=== PATIENT | female | born 1955 | race African-American/Black ===

== ENCOUNTER 2019-02-18 23:15 | Emergency (ER) | payer OTHER ==
[2019-02-18 23:27] VITALS: BP 149/93; PULSE 88; TEMP 97.6; BMI 25.7
--- NOTE | 2019-02-18 23:28 | PDOC ---
Attending Attestation - HPI HPI: 02/19/19 00:26 The patient is a 63 year old female with a past medical history of chronic abdominal pain, pancreatitis, DVT (on xarelto), and alcohol dependence brought in by EMS today from [facility] for evaluation of an unwitnessed fall and epigastric pain. Patient reports that she fell today when getting out of bed and denies head strike or loss of consciousness. Patient also reports epigastric pain that radiates to the right lower quadrant and notes that she has not been able to eat due to nausea and vomiting. She also notes episodes of diarrhea. Patient denies headache, lightheadedness. Denies fever, chills. Denies chest pain, shortness of breath. Denies lower extremity edema. Denies urinary symptoms. Allergies: NKA - Physicial Exam PE: 02/19/19 00:45 Constitutional: Awake, alert, oriented. No acute distress. Head: Normocephalic. Atraumatic Eyes: PERRL. EOMI. Conjunctivae are not pale. ENT: Mucous membranes are moist and intact. Posterior pharynx without exudates or erythema. Uvula midline. Neck: Supple. Full ROM. No lymphadenopathy. Cardiovascular: Regular rate. Regular rhythm. S1, S2 regular. Distal pulses are 2+ and symmetric. Pulmonary/Chest: No evidence of respiratory distress. Clear to auscultation bilaterally No wheezing, rales or rhonchi. Abdominal: +upper abdominal pain most prominent in the right upper quadrant. Soft and non-distended. No rebound, guarding or rigidity. No organomegaly. No palpable masses. Good bowel sounds. Back: No CVA tenderness. Musculoskeletal: No edema. No cyanosis. No clubbing. Full range of motion in all extremities. No calf tenderness. Radial/pedal pulses are intact and 2+ bilaterally Skin: +bruising. Skin is warm and dry. No petechiae. No purpura. Neurological: Alert and oriented to person, place, and time. Cranial nerves II -XII are grossly intact. Normal speech. Strength is grossly symmetric. No sensory deficits. Psychiatric: Good eye contact. Normal interaction, affect and behavior. - Medical Decision Making 02/19/19 00:26 Documentation prepared by ALEKSANDRA Berg, acting as ophthalmic medical assistant for Michelle Sommers DO. <Alex Aleman - Last Filed: 02/19/19 00:46> - Resident Resident Name: Sa Nicholeira - ED Attending Attestation I have performed the following: I have examined & evaluated the patient, The case was reviewed & discussed with the resident, I agree w/resident's findings & plan, Exceptions are as noted - Medical Decision Making 02/18/19 23:28 I, Dr. Michelle Sommers, DO, attest that this document has been prepared under my direction and personally reviewed by me in its entirety. I further attest, that it accurately reflects all work, treatment, procedures and medical decision -making performed by me. 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
[2019-02-18] MEDS ORDERED: FAMOTIDINE 20 MG/50 ML IVPB 20 MG/50 ML MG IVPB ONE ×2 (23:42→23:50)
[2019-02-18] MEDS ORDERED: ONDANSETRON 4 MG/2 ML VIAL IVPB ONE (23:42)
[2019-02-18] MEDS ORDERED: SODIUM CHLORIDE 1,000 ML IV STA (23:42)
[2019-02-18] MEDS ORDERED: ACETAMINOPHEN 1000 MG/100 ML VIAL (NON FORMULARY) IVPB ONE (23:42)
--- NOTE | 2019-02-18 23:42 | PDOC ---
History of Present Illness - General Chief Complaint: Injury Stated Complaint: FALL Time Seen by Provider: 02/18/19 23:23 History Source: Patient Exam Limitations: No Limitations - History of Present Illness Initial Comments: 02/18/19 23:37 *[facility] Pt is a 63yo F with PMH of Cirrhosis, Chronic Pancreatitis, Pancreatic Pseudocyst, DVT (on Xarelto), Chronic Hep C, UGIB, HTN, Alcohol Use BIBA from [facility] after a fall. Pt states that she tried getting out of bed and was caught on the sheet and fell on her bottom. [facility] noted the blood pressure was high. She has been in detox for one week and states that she has not been eating because she cannot keep anything down. Pt is stating that she has pain in her abdomen in the epigastric area that "feels like a pain". Occasionally radiates to the RLQ associated with nausea and vomiting (nbnb) when she eats. Also endorsing diarrhea (non bloody)but is darker than usual. She states she feels weak and has occasional chest tightness but not today. Denies SOB, cough, fevers, chills, headache, numbness/tingling, urinary symptoms. PMD: Siddabattu? PMH: see hpi PSH: none Meds: Creon, Xarelto Allergies: nkda Social: last drink 1 week ago, smokes 1ppd Past History - Past Medical History Allergies/Adverse Reactions: Allergies Allergy/AdvReac Type Severity Reaction Status Date / Time No Known Allergies Allergy Verified 02/18/19 23:47 - Suicide/Smoking/Psychosocial Hx Smoking History: Unknown if ever smoked Have you smoked in the past 12 months: No Information on smoking cessation initiated: No Hx Alcohol Use: Yes Drug/Substance Use Hx: Yes Review of Systems - Review of Systems Constitutional: Yes: Loss of Appetite, Weakness. No: Chills, Fever HEENTM: No: Symptoms Reported Respiratory: No: Cough, Shortness of Breath Cardiac (ROS): Yes: Chest Tightness. No: Chest Pain, Lightheadedness, Palpitations, Syncope ABD/GI: Yes: See HPI, Diarrhea, Nausea, Vomiting, Abdominal cramping. No: Constipated, Rectal Bleeding, Tarry Stools : No: Burning, Dysuria Musculoskeletal: No: Back Pain, Joint Pain, Muscle Pain, Muscle Weakness Integumentary: No: Bruising, Rash Neurological: No: Headache, Numbness, Tingling, Tremors *Physical Exam - Vital Signs Last Vital Signs Temp Pulse Resp BP Pulse Ox 97.6 F 88 20 149/93 98 02/18/19 23:26 02/18/19 23:26 02/18/19 23:26 02/18/19 23:26 02/18/19 23:26 - Physical Exam General Appearance: Yes: Nourished, Appropriately Dressed, Mild Distress HEENT: positive: EOMI, MARY, Normal ENT Inspection Neck: positive: Trachea midline, Supple. negative: Lymphadenopathy (R), Lymphadenopathy (L) Respiratory/Chest: positive: Lungs Clear, Normal Breath Sounds. negative: Crackles, Wheezing Cardiovascular: positive: Regular Rhythm, Regular Rate, S1, S2. negative: Edema , JVD, Murmur Vascular Pulses: Carotid (R): 2+, Carotid (L): 2+, Dorsalis-Pedis (R): 2+, Doralis-Pedis (L): 2+ Gastrointestinal/Abdominal: positive: Normal Bowel Sounds, Soft, Tenderness ( epigastric). negative: Protuberent, Distended, Guarding, Rebound, Mass Rectal Exam: positive: heme negative stool, normal rectal tone, hemorrhoids. negative: melena Musculoskeletal: negative: CVA Tenderness, Vertebral Tenderness Extremity: positive: Normal Capillary Refill, Pelvis Stable. negative: Pedal Edema, Swelling, Calf Tenderness Integumentary: positive: Normal Color, Dry, Warm Neurologic: positive: manager mortgage II-XII NML intact, Fully Oriented, Alert, Normal Mood/ Affect, Normal Response, Motor Strength 5/5 Moderate Sedation - Procedure Monitoring Vital Signs: Procedure Monitoring Vital Signs Temperature 97.6 F 02/18/19 23:26 Pulse Rate 88 02/18/19 23:26 Respiratory Rate 20 02/18/19 23:26 Blood Pressure 149/93 02/18/19 23:26 O2 Sat by Pulse Oximetry (%) 98 02/18/19 23:26 ED Treatment Course - LABORATORY CBC & Chemistry Diagram: 02/19/19 00:05 02/19/19 00:05 Medical Decision Making - Medical Decision Making 02/18/19 23:41 Pt is a 63yo F with PMH of Cirrhosis, Chronic Pancreatitis, Pancreatic Pseudocyst, DVT (on Xarelto), Chronic Hep C, UGIB, HTN, Alcohol Use BIBA from [facility] after a fall. Pt states that she tried getting out of bed and was caught on the sheet and fell on her bottom. [facility] noted the blood pressure was high. She has been in detox for one week and states that she has not been eating because she cannot keep anything down. Pt is stating that she has pain in her abdomen in the epigastric area that "feels like a pain". Occasionally radiates to the RLQ associated with nausea and vomiting (nbnb) when she eats. Also endorsing diarrhea (non bloody)but is darker than usual. She states she feels weak and has occasional chest tightness but not today. Vitals: wnl PE: epigastric tenderness. Clear lungs, normal heart sounds DPs equal and palpable, normal neurological exam, no fluid wave no abdominal distention ddx includes but not limited to acute on chronic pancreatitis, liver failure, gerd, pud, gastritis, cholecystitis, colitis, perforation -cbc, cmp, lipase, trop, coags, guaiac, lact -ekg, cxr, ct head - iv fluids, iv tylenol, pepcid, zofran pt still in pain and feeling nauseous: morphine, reglan 02/19/19 00:38 Called [facility] to obtain PMH: Pt was last seen at [facility] 02/15/2019 for abdominal pain. Recent lab: lipase 24, AST 77, ALT 26, Plt 186, H/H 10.7/33.7, PT/INR 24.7/1.2 02/19/19 01:36 cbc and cmp wnl. pending guaiac and coags. CT head pending. If normal, pt can be sent back to [facility] to complete detox. 02/19/19 01:57 stool occult negative. normal coags. lact pending CT head done, pending read. lactic normal and CT head does not show anything acute. Pt endorsed back to [facility]. 02/19/19 02:36 *DC/Admit/Observation/Transfer Diagnosis at time of Disposition: Abdominal pain Qualifiers: Abdominal location: epigastric Qualified Code(s): R10.13 - Epigastric pain Fall Qualifiers: Encounter type: initial encounter Qualified Code(s): W19.XXXA - Unspecified fall, initial encounter - Discharge Dispostion Disposition: HOME Condition at time of disposition: Improved Decision to Admit order: No - Referrals - Patient Instructions Printed Discharge Instructions: DI for Abdominal Pain-Adult Additional Instructions: You were seen in the emergency room for a fall and abdominal pain. All of the blood work was normal and the CT is normal. Please try to eat and keep yourself well hydrated. Come back to the emergency room if pain gets worse, you start vomiting blood, there is blood in the stool, you pass out or if any new concerning symptom develops. Thank you - Post Discharge Activity
[2019-02-18] MEDS ORDERED: ACETAMINOPHEN INJECTION 100 ML IVPB ONE (23:49)
[2019-02-18] MEDS ORDERED: ONDANSETRON 4 MG/2 ML VIAL ONE (23:49)
[2019-02-19] MEDS ORDERED: METOCLOPRAMIDE HCL INJECTION 10 MG/2 ML VIAL IVPB ONE (00:27)
[2019-02-19] MEDS ORDERED: morphine CARPU-JECT 4 MG/1 ML DISP.SYRIN IVPUSH ONE (00:28)
[2019-02-19 00:50] LABS: HEMATOCRIT 37.9 % (32.4-45.2); HEMOGLOBIN 12.8 GM/dL (10.7-15.3); MCH 31.2 pg (25.7-33.7); MCHC 33.8 g/dl (32.0-36.0); MEAN CELL VOLUME 92.3 fl (80-96); MEAN PLT VOLUME 7.4 fl (7.5-11.1); MONO % 35.5 % (3.8-10.2); NEUT % 50.5 % (42.8-82.8); PLATELET COUNT 148 K/MM3 (134-434); RBC 4.11 M/mm3 (3.60-5.2); RDW 18.7 % (11.6-15.6); WHITE BLOOD COUNT 4.9 K/mm3 (4.0-10.0)
[2019-02-19] MEDS ORDERED: METOCLOPRAMIDE HCL INJECTION 10 MG/2 ML VIAL ONE (00:56)
[2019-02-19] MEDS ORDERED: MORPHINE SULFATE 2 MG/ML VIAL ONE (00:56)
[2019-02-19 01:17] LABS: ALBUMIN 3.9 g/dl (3.4-5.0); ALK PHOS 125 U/L (45-117); ANION GAP 5 MMOL/L (8-16); BILIRUBIN,TOTAL 0.2 mg/dL (0.2-1); BLOOD UREA NITROGEN 9 mg/dL (7-18); CALCIUM 9.7 mg/dL (8.5-10.1); CHLORIDE 102 mmol/L (98-107); CO2 31 mmol/L (21-32); CREATININE 0.9 mg/dL (0.55-1.3); GLUCOSE,RANDOM 115 mg/dL (74-106); POTASSIUM 4.5 mmol/L (3.5-5.1); SGOT/AST 44 U/L (15-37); SGPT/ALT 35 U/L (13-61); SODIUM 139 mmol/L (136-145); TOT PROT 7.8 g/dl (6.4-8.2)
[2019-02-19 01:18] LABS: LIPASE 384 U/L (73-393)
[2019-02-19 01:43] LABS: INR 1.39 (0.83-1.09); PROTHROMBIN TIME (PATIENT) 16.5 SEC (9.7-13.0)
--- NOTE | 2019-02-19 02:12 | PDOC ---
*Physical Exam - Vital Signs Last Vital Signs Temp Pulse Resp BP Pulse Ox 97.6 F 88 20 149/93 98 02/18/19 23:26 02/18/19 23:26 02/18/19 23:26 02/18/19 23:26 02/18/19 23:26 ED Treatment Course - LABORATORY CBC & Chemistry Diagram: 02/19/19 00:05 02/19/19 00:05 - ADDITIONAL ORDERS Additional order review: Laboratory Results 02/19/19 02/19/19 02/19/19 00:50 00:05 00:05 PT with INR 16.50 H INR 1.39 H PTT (Actin FS) 29.0 Sodium 139 Potassium 4.5 Chloride 102 Carbon Dioxide 31 Anion Gap 5 L BUN 9 Creatinine 0.9 Creat Clearance w eGFR 62.84 Random Glucose 115 H Calcium 9.7 Total Bilirubin 0.2 AST 44 H ALT 35 Alkaline Phosphatase 125 H Troponin I < 0.02 Total Protein 7.8 Albumin 3.9 Lipase 384 Stool Occult Blood 02/19/19 00:03 PT with INR INR PTT (Actin FS) Sodium Potassium Chloride Carbon Dioxide Anion Gap BUN Creatinine Creat Clearance w eGFR Random Glucose Calcium Total Bilirubin AST ALT Alkaline Phosphatase Troponin I Total Protein Albumin Lipase Stool Occult Blood Negative 02/19/19 00:05 RBC 4.11 MCV 92.3 MCHC 33.8 RDW 18.7 H MPV 7.4 L Neutrophils % 50.5 Lymphocytes % 14.0 Monocytes % 35.5 H Eosinophils % 0.0 Basophils % 0.0 - Medications Given in the ED: ED Medications Discontinued Medications Generic Name Dose Route Start Last Admin Trade Name Freq PRN Reason Stop Dose Admin Acetaminophen 1,000 mg 02/18/19 23:42 02/19/19 00:11 Ofirmev Injection - IVPB 02/18/19 23:43 1,000 mg ONCE ONE Administration Famotidine/Sodium Chloride 20 mg in 50 mls @ 100 mls/hr 02/18/19 23:42 01:01 Pepcid 20 Mg Premixed Ivpb - IVPB 02/19/19 00:11 100 mls/hr ONCE ONE Administration Sodium Chloride 1,000 mls @ 1,000 mls/hr 02/18/19 23:42 02/19/19 00:11 Normal Saline - IV 02/19/19 00:41 1,000 mls/hr ASDIR STA Administration Metoclopramide HCl 10 mg 02/19/19 00:27 02/19/19 01:01 Reglan Injection - IVPB 02/19/19 00:28 10 mg ONCE ONE Administration Morphine Sulfate 2 mg 02/19/19 00:28 02/19/19 01:01 Morphine Injection - IVPUSH 02/19/19 00:29 2 mg ONCE ONE Administration Ondansetron HCl 4 mg 02/18/19 23:42 02/19/19 00:11 Zofran Injection IVPB 02/18/19 23:43 4 mg ONCE ONE Administration Medical Decision Making - Medical Decision Making I have assumed care of the patient from Dr. Varela, who has discussed the clinical presentation, work-up, and ED course thus far. I have reviewed the patients medical record and ED course and agree with all aspects of care thus far. Pt pending CT read and Lactate Plan for D/C to [facility] if both are wnl 02/19/19 02:11 *DC/Admit/Observation/Transfer Diagnosis at time of Disposition: Abdominal pain Qualifiers: Abdominal location: epigastric Qualified Code(s): R10.13 - Epigastric pain Fall Qualifiers: Encounter type: initial encounter Qualified Code(s): W19.XXXA - Unspecified fall, initial encounter - Discharge Dispostion Disposition: HOME Condition at time of disposition: Improved - Referrals - Patient Instructions Printed Discharge Instructions: DI for Abdominal Pain-Adult Additional Instructions: You were seen in the emergency room for a fall and abdominal pain. All of the blood work was normal and the CT is normal. Please try to eat and keep yourself well hydrated. Come back to the emergency room if pain gets worse, you start vomiting blood, there is blood in the stool, you pass out or if any new concerning symptom develops. Thank you - Post Discharge Activity
[2019-02-19 09:40] LABS: ANISOCYTOSIS 0; MACROCYTOSIS 0; PLATELET ESTIMATE NORMAL
--- NOTE | 2019-02-19 10:59 | EKG ---
Test Reason : Blood Pressure : / mmHG Vent. Rate : 075 BPM Atrial Rate : 075 BPM P-R Int : 154 ms QRS Dur : 082 ms QT Int : 414 ms P-R-T Axes : 074 064 072 degrees QTc Int : 462 ms NORMAL SINUS RHYTHM POSSIBLE LEFT ATRIAL ENLARGEMENT NO PREVIOUS ECGS AVAILABLE Confirmed by FABIOLA SCHNEIDER MD ([id number]) on 02/19/2019 10:59:41 AM Referred By: Confirmed By:FABIOLA SCHNEIDER MD
== END 2019-02-19 04:06 | disposition home or self-care (01) ==
LOC: JER 23:15
PROC: 3E033NZ Introduction of Analgesics, Hypnotics, Sedatives into Peripheral Vein, Percutaneous Approach (ICD-10-PCS; principal; 2019-02-18)
PROC: 3E033GC Introduction of Other Therapeutic Substance into Peripheral Vein, Percutaneous Approach (ICD-10-PCS; 2019-02-18)
PROC: 3E0337Z Introduction of Electrolytic and Water Balance Substance into Peripheral Vein, Percutaneous Approach (ICD-10-PCS; 2019-02-18)
DX: R10.13 Epigastric pain (principal); W18.39XA Other fall on same level, initial encounter; Y93.89 Activity, other specified; Y92.89 Other specified places as the place of occurrence of the external cause; I10 Essential (primary) hypertension
CPT/HCPCS: 36415; 70450-TC; 71045-TC-FY; 80053; 82272; 83605; 83690; 84484; 85025; 85610; 85730; 93005; 93010; 99282-25; J0131; J7030